=== PATIENT | female | born 1975 | race Caucasian/White ===

== ENCOUNTER 2023-05-05 11:01 | Outpatient (OUT) | payer OTHER, SELFPAY ==
--- NOTE | 2023-05-05 11:24 | XR_ITS ---
The [address] [address] Patient Name: JUVENAL PEACE MRN: [id number] date: 1975 Sex: F Assigned Patient Location: LAB Current Patient Location: LAB Accession/Order Number: [id number] Exam Date: 05/05/2023 11:30 Report Date: 05/05/2023 11:50 At the request of: MOISES REARDON Procedure: XR chest 2V EXAM: XR chest 2V HISTORY: Cough R05.3 COMPARISON: None. TECHNIQUE: PA and lateral views of the chest. FINDINGS: The cardiomediastinal silhouette is normal. No focal consolidation is identified. There is no pneumothorax. No pleural effusion is noted. The osseous structures are intact. XR/XR chest 2V IMPRESSION: No acute cardiopulmonary process. Electronically authenticated by: BEBO BOSS Date: 05/05/2023 11:50
[2023-05-05 11:26] LABS: Basophils Absolute Auto 0.1 10^3/uL (0.0-0.1); Basophils Percent Auto 1.2 % (0.2-2.0); Eosinophils Absolute Auto 0.2 10^3/uL (0.0-0.7); Eosinophils Percent Auto 5.3 % (0.9-7.0); Hematocrit 38.4 % (36.0-48.0); Hemoglobin 13.2 g/dL (12.0-16.0); Lymphocytes Absolute Auto 1.4 10^3/uL (1.2-3.8); Mean Corpuscular HGB Conc 34.4 g/dL (29.9-35.2); Mean Corpuscular Hemoglobin 30.4 pg (26.7-34.0); Mean Corpuscular Volume 88.5 fL (81.0-99.0); Mean Platelet Volume 10.7 fL (9.5-13.5); Monocytes Absolute Auto 0.4 10^3/uL (0.3-0.8); Neutrophils Percent Auto 49.5 % (43.0-75.0); Platelet Count 155 10^3/uL (150-450); Red Blood Count 4.34 10^6/uL (4.20-5.40); Red Cell Distribution Width 12.3 % (11.0-15.0); White Blood Count 4.1 10^3/uL (4.0-11.0)
[2023-05-05 11:49] LABS: Anion Gap 12.5; BUN Creatinine Ratio 14.8; Calcium 8.9 mg/dL (8.5-10.1); Carbon Dioxide 28.4 mmol/L (21.0-32.0); Chloride 103 mmol/L (98-107); Estimated GFR (African America >60 (>=60); Estimated GFR (Non-African Ame >60 (>=60); Glucose 94 mg/dL (74-106); Potassium 3.9 mmol/L (3.5-5.1); Sodium 140 mmol/L (136-145)
[2023-05-05 12:07] LABS: D Dimer 1.03 mg/L FEU (<=0.59)
--- NOTE | 2023-05-05 13:40 | CT_ITS ---
The [address] [address] Patient Name: JUVENAL PEACE MRN: [id number] date: 1975 Sex: F Assigned Patient Location: LAB Current Patient Location: LAB Accession/Order Number: [id number] Exam Date: 05/05/2023 14:25 Report Date: 05/05/2023 15:10 At the request of: MOISES REARDON Procedure: CT angio chest EXAMINATION: CHEST CT WITH CONTRAST (PULMONARY EMBOLISM PROTOCOL) Indication: Abnormal Finding Of Blood Technique: Spiral CT acquisition of the chest from the thoracic inlet to the upper abdomen following IV contrast. Maximum intensity projection (MIP)reconstructions were performed. All CT scans at this facility use dose modulation, iterative reconstruction, and/or weight based dosing when appropriate to reduce radiation dose to as low as reasonably achievable. Contrast: 98 mL of Omnipaque 350 IV Comparison: Chest radiograph 05/05/2023 RESULT: Limitations: None. Evaluation for thromboembolic disease: - Right heart chambers: No thromboembolic disease. - Main pulmonary arteries: No thromboembolic disease. - Lobar pulmonary arteries: No thromboembolic disease. - Segmental pulmonary arteries: No thromboembolic disease. - Subsegmental pulmonary arteries: No thromboembolic disease. Lines, tubes, and devices: None. Lung parenchyma and pleura: No consolidation. No suspicious pulmonary nodule. No pleural effusion. Mild bibasilar atelectasis. Few scattered calcified granulomas. Central airways are patent. Thoracic inlet, heart, and mediastinum: No lymphadenopathy in the axillary, mediastinal, or hilar regions. The thoracic aorta and main pulmonary artery are normal in caliber. The cardiac chambers are normal in size. No coronary artery atherosclerotic calcifications are noted, although the study is not optimized for coronary assessment. No pericardial effusion or thickening. Bones and soft tissues: No destructive bone lesion. Chest wall is unremarkable. Upper abdomen: Splenic granulomas . CT/CT angio chest IMPRESSION: No CT evidence of pulmonary embolism or acute findings in the thorax. Electronically authenticated by: WHITLEY BISHOP Date: 05/05/2023 15:10
== END 2023-05-05 11:02 | disposition home or self-care (01) ==
PROVIDERS: PCP Family Medicine; Visit Provider Family Medicine
DX: R07.2 Precordial pain (principal); R05.3 Chronic cough; R79.89 Other specified abnormal findings of blood chemistry
CPT/HCPCS: 36415; 71046; 71275; 80048; 85025; 85378; Q9967